=== PATIENT | male | born 1970 | race Caucasian/White ===

== ENCOUNTER 2023-08-22 09:15 | Outpatient (CLI) | payer OTHER ==
[~2023-08-22] VITALS: Ht 176.5 cm; Wt 105.7 kg
[2023-08-22] MEDS: albuterol 2.5 MG/3 ML nebule NEB ONE (09:46)
[2023-08-22 09:51] VITALS: PULSE 77; RESP 16; O2SAT 95
== END 2023-08-22 23:59 | disposition home or self-care (01) ==
LOC: RT 09:15
PROVIDERS: ATTEND Chiropractor
DX: J98.4 Other disorders of lung (principal); R91.1 Solitary pulmonary nodule
CPT/HCPCS: 94060; 94760